=== PATIENT | female | born 1960 | race African-American/Black ===

== ENCOUNTER → 2018-10-07 | Outpatient (CLI) | payer OTHER ==
[2017-03-27 11:13] VITALS: BP 139/85
[~2018-10-07] MED LIST: AMLO2.5T2 PO; ASPI-630 PO; ATOR20TA PO; Aspirin PO; CHOL100013 PO; CLOP75TA57 PO; FLUT9.9S NS; HYDR12.575 PO; HYDR12.58 PO; ISOS30TA4 PO; LISI-338 PO; METO-239 PO; MULT-18 PO; OMEG500C3 PO; OMEP20CA10 PO
--- NOTE | 2018-10-07 15:06 | CARD ---
MR#: [id number] Date of Study: 10/07/2018 Ordering Physician: ADELINA ASHFORD, Referring Physician: ADELINA ASHFORD Tech: Diana Kay AZEEM APPROVED REPORT EXAM: Two-dimensional and M-mode echocardiogram with Doppler and color Doppler. Other Information Quality : GoodHR: 60bpm Rhythm : NSR INDICATION CAD 2D DIMENSIONS RVDd3.3 (2.9-3.5cm)Left Atrium(2D)3.2 (1.6-4.0cm) IVSd1.1 (0.7-1.1cm)Aortic Root(2D)2.7 (2.0-3.7cm) LVDd4.6 (3.9-5.9cm)LVOT Diameter2.3 (1.8-2.4cm) PWd1.0 (0.7-1.1cm)LVDs2.8 (2.5-4.0cm) FS (%) 38.5 %SV68.0 ml M-Mode DIMENSIONS Left Atrium(MM)3.19 (2.5-4.0cm)Aortic Root3.16 (2.2-3.7cm) Aortic Valve AoV Peak Maged.122.2cm/sAoV VTI27.9cm AO Peak GR.6.0mmHgLVOT Peak Maged.82.9cm/s AO Mean GR.3mmHgAVA (VMAX)2.77cm2 CARLOTA (VTI)2.80cm2 Mitral Valve MV E Zyklfzew90.4cm/sMV DECEL [id number] MV A Ntratcac04.6cm/sE/A Ratio1.2 Pulmonary Valve PV Peak Oswkufaf89.1cm/s Tricuspid Valve TR P. Iyoerdaw346zc/sRAP [id number] TR Peak Gr.10plVdNIAU09rxYl LEFT VENTRICLE The left ventricle is normal size. There is normal left ventricular wall thickness. The left ventricu lar systolic function is normal and the ejection fraction is within normal range. The Ejection Fracti on is 55-60%. There is normal LV segmental wall motion. Transmitral Doppler flow pattern is Grade II- pseudonormal filling dynamics. RIGHT VENTRICLE The right ventricle is normal size. There is normal right ventricular wall thickness. The right ventr icular systolic function is normal. ATRIA The left atrium size is normal. The right atrium size is normal. The interatrial septum is intact wit h no evidence for an atrial septal defect or patent foramen ovale as noted on 2-D or Doppler imaging. AORTIC VALVE The aortic valve is normal in structure and function. The aortic valve is trileaflet. Doppler and Col or Flow revealed no significant aortic regurgitation. There is no significant aortic valvular stenosi s. There is no aortic valvular vegetation. MITRAL VALVE The mitral valve is normal in structure and function. There is no evidence of mitral valve prolapse. There is no mitral valve stenosis. Doppler and Color Flow revealed no mitral valve regurgitation note d. TRICUSPID VALVE The tricuspid valve is normal in structure and function. Doppler and Color Flow revealed trace tricus pid regurgitation. The PA pressure was estimated at 30 mmHg. There is no tricuspid valve prolapse or vegetation. There is no tricuspid valve stenosis. PULMONIC VALVE The pulmonic valve is not well visualized. GREAT VESSELS The aortic root is normal in size. The ascending aorta is normal in size. The IVC is normal in size a nd collapses >50% with inspiration. PERICARDIAL EFFUSION There is no evidence of significant pericardial effusion. Critical Notification Critical Value: No <Conclusion> The left ventricle is normal size. The left ventricular systolic function is normal and the ejection fraction is within normal range. The Ejection Fraction is 55-60%. There is normal LV segmental wall motion. There is no significant aortic valvular stenosis. Doppler and Color Flow revealed no significant aortic regurgitation. Doppler and Color Flow revealed no mitral valve regurgitation noted. Doppler and Color Flow revealed trace tricuspid regurgitation. The PA pressure was estimated at 30 mmHg. Signed by : Layo Licona MD Electronically Approved : 10/07/2018 15:06:01
== END | disposition home or self-care (01) ==
LOC: ECHO 13:36
PROVIDERS: ATTEND Internal Medicine Cardiovascular Disease
DX: I25.10 Atherosclerotic heart disease of native coronary artery without angina pectoris (principal)
CPT/HCPCS: 93306

== ENCOUNTER → 2021-07-31 | Outpatient (CLI) | payer OTHER ==
[2017-03-27 11:13] VITALS: BP 139/85
[~2021-07-31] MED LIST changes: -ISOS30TA4 PO; +ISOS30TA68 PO; -LISI-338 PO; +LISI5TAB15 PO; -OMEP20CA10 PO; +OMEP20CA16 PO
--- NOTE | 2021-07-31 17:43 | CARD ---
MR#: [id number] Date of Study: 07/31/2021 Ordering Physician: ADELINA ASHFORD, Referring Physician: ADELINA ASHFORD Tech: Vane Swartz [facility] APPROVED REPORT EXAM: Two-dimensional and M-mode echocardiogram with Doppler and color Doppler. Other Information Quality : GoodHR: 52bpm Rhythm : NSR INDICATION Cardiac Disease: CAD RISK FACTORS Hypertension Hyperlipidemia 2D DIMENSIONS RVDd3.6 (2.9-3.5cm)Left Atrium(2D)3.5 (1.6-4.0cm) IVSd1.3 (0.7-1.1cm)Aortic Root(2D)2.9 (2.0-3.7cm) LVDd4.1 (3.9-5.9cm)LVOT Diameter2.0 (1.8-2.4cm) PWd1.3 (0.7-1.1cm)IVSs1.9 (0.8-1.2cm) LVDs3.0 (2.5-4.0cm)FS (%) 27.4 % PWs1.5 (0.8-1.2cm)SV40.6 ml Aortic Valve AoV Peak Maged.112.1cm/sAoV VTI25.7cm AO Peak GR.5.0mmHgLVOT Peak Maged.76.8cm/s LVOT VTI 17.71cmAO Mean GR.3mmHg CARLOTA (VMAX)1.04js4BCB (VTI)2.08cm2 Mitral Valve MV E Cbpdtniq55.5cm/sMV DECEL [id number] MV A Scgoieoz06.1cm/sMV [id number] E/A Ratio1.1MVA (PHT)3.24cm2 TDI E/Lateral E'6.7E/Medial E'7.8 Pulmonary Valve PV Peak Yvutjpni32.4cm/sPV Peak Grad.2mmHg Tricuspid Valve TR P. Kwnmfxsy405vp/sTR Peak Gr.18mmHg LEFT VENTRICLE The left ventricle is normal size. There is mild concentric left ventricular hypertrophy. The left ve ntricular systolic function is normal. LV ejection fraction of 55 to 60%. There is normal LV segmenta l wall motion. The left ventricular diastolic function and filling is normal for age. RIGHT VENTRICLE The right ventricle is normal size. There is normal right ventricular wall thickness. The right ventr icular systolic function is normal. ATRIA The left atrium size is normal. The right atrium size is normal. The interatrial septum is intact wit h no evidence for an atrial septal defect or patent foramen ovale as noted on 2-D or Doppler imaging. AORTIC VALVE The aortic valve is normal in structure and function. Doppler and Color Flow revealed no significant aortic regurgitation. There is no significant aortic valvular stenosis. MITRAL VALVE The mitral valve is normal in structure and function. There is no evidence of mitral valve prolapse. There is no mitral valve stenosis. Doppler and Color Flow revealed no mitral valve regurgitation note d. TRICUSPID VALVE The tricuspid valve is normal in structure and function. Doppler and Color Flow revealed mild tricusp id regurgitation. Estimated PAP 20-23 mmHg. There is no tricuspid valve stenosis. PULMONIC VALVE The pulmonary valve is normal in structure and function. Doppler and Color Flow revealed mild pulmoni c valvular regurgitation. GREAT VESSELS The aortic root is normal in size. The ascending aorta is normal in size. The IVC is normal in size a nd collapses >50% with inspiration. PERICARDIAL EFFUSION There is no evidence of significant pericardial effusion. Critical Notification Critical Value: No <Conclusion> The left ventricle is normal size. The left ventricular systolic function is normal. LV ejection fraction of 55 to 60%. There is mild concentric left ventricular hypertrophy. Doppler and Color Flow revealed no significant aortic regurgitation. There is no significant aortic valvular stenosis. Doppler and Color Flow revealed no mitral valve regurgitation noted. Doppler and Color Flow revealed mild tricuspid regurgitation. Estimated PAP 20-23 mmHg. Signed by : Layo Licona MD Electronically Approved : 07/31/2021 17:42:48
== END ==
LOC: ECHO 13:44
PROVIDERS: ATTEND Internal Medicine Cardiovascular Disease
DX: I08.8 Other rheumatic multiple valve diseases (principal); I25.10 Atherosclerotic heart disease of native coronary artery without angina pectoris
CPT/HCPCS: 93306; C8929